=== PATIENT | female | born 1955 | race Caucasian/White ===

== ENCOUNTER 2016-09-14 23:01 | Emergency (ER) | payer OTHER ==
[2016-09-14] MEDS ORDERED: METOCLOPRAMIDE HCL 10 MG/2 ML VIAL ONE (23:30)
[2016-09-14] MEDS ORDERED: DIPHENHYDRAMINE 50 MG/ML VIAL ONE (23:30)
[2016-09-15] MEDS ORDERED: ACYCLOVIR 500 MG/10 ML VIAL IV ONE (00:04)
[2016-09-15] MEDS ORDERED: NORMAL SALINE 100 ML IV ONE (00:18)
--- NOTE | 2016-09-15 01:32 | ER NURSING DOCUMENTATION ---
Nurse's Notes [facility] Name:Shelia Russo Age:61 yrs Sex:Female :1955 Arrival Date:09/14/2016 Time:23:01 Bed1 Private MD:Physician, No Diagnosis:Acute Headache;Shingles Presentation: 09/14 23:07 Presenting complaint: Patient states: PT has had COLON for two days, started behind the right ear and is now on the right side of her head. Pt is photophobic, no nausea. Transition of care: Home. 23:07 Acuity: SHERON 3 23:07 Method Of Arrival: Private Vehicle Triage Assessment: 23:12 Headache History: The patient has had previous headaches and this one is similar to previous episodes. General: Appears uncomfortable, Behavior is cooperative. Pain: Complains of pain in right parietal area and right temporal area Pain currently is 10 out of 10 on a pain scale. Pain began 2-3 days ago Also complains of photophobia. EENT: Oral mucosa is dry. Reports photophobia. Neuro: Level of Consciousness is awake, alert, obeys commands, Oriented to person, place, time, event, Recycling Manager are equal bilaterally Moves all extremities. Gait is steady, Speech is normal, Facial symmetry appears normal, Pupils are PERRLA. Cardiovascular: Capillary refill < 3 seconds Chest pain is denied. Respiratory: Airway is patent. Historical: - Allergies: Toradol; Ceftin; - Home Meds: 1. lisinopril 10 mg oral tab 1 tab once daily 2. duloxetine 60 mg oral cpDR 1 cap once daily 3. cyclobenzaprine 10 mg oral tab 1 tab 4. atorvastatin 40 mg oral tab 1 tab once daily 5. clonazepam 0.5 mg oral tab 1 tab 6. hydrocodone-acetaminophen 7.5-325 mg oral tab 1 tab Q8H as needed for pain 7. Omeprazole Oral - PMHx: FIBROMYALGIA; HIGH CHOLESTEROL; Hypertension; Headaches; MIGRAINES; HENIATED DISC; EMPHYSEMA; - PSHx: ; Knee surgery; - Tetanus: < 10 years. - Ebola Screening: : Patient negative for fever greater than or equal to 101.5 degrees Fahrenheit, and additional compatible Ebola Virus Disease symptoms. - Immunization history: Flu Vaccine None. - Social history: Smoking status: Patient states former smoker of tobacco. Screenin:14 Infectious Disease Risk None. Abuse screen: Denies threats or abuse. Denies injuries rh from another. Nutritional screening: No deficits noted. Assessment: 23:14 See Triage Assessment done by same RN. Vital Signs: 23:13 BP 105 / 52; Pulse 78; Resp 16; Temp 98.0(TE); Pulse Ox 96% on R/A; Weight 84.37 kg; rh Height 5 ft. 6 in. (167.64 cm); Pain 10; 09/15 01:30 BP 106 / 50; Pulse 72; Resp 15; Pulse Ox 93% on R/A; Pain 1/10; rh 09/14 23:13 Body Mass Index 30.02 (84.37 kg, 167.64 cm) rh ED Course: 09/14 23:02 Patient arrived in ED. em2 23:02 Physician, Saundra is Private Physician. em2 23:07 Veronica Young is Primary Nurse. rh 23:08 Triage completed. rh 23:14 Notified ED Physician of patient's arrival and chief complaint. Dr. Magana notified. rh 23:14 Valuables Remains with patient Patient has correct armband on for positive rh identification. Bed in low position. Call light in reach. Side rails up X 1. 23:21 Inserted saline lock: 20 gauge in left antecubital area and blood collected. em1 23:22 Boone Magana MD is Attending Physician. jm Administered Medications: 23:25 Drug: Benadryl 25 mg; Route: IVP; Site: left antecubital; 09/15 00:30 Follow up: Response: No adverse reaction 09/14 23: Drug: NS 0.9% 1000 ml; Route: IV; Rate: bolus; Site: left antecubital; 09/15 00:00 Follow up: IV Status: Completed infusion; IV Intake: 1000ml 09/14 22: Drug: Reglan 5 mg; Route: IVP; Site: left antecubital; 09/15 00:30 Follow up: Response: No adverse reaction 00:21 CANCELLED (Other Intervention Used): Acyclovir 800 mg IVPB once mv 00:21 Drug: Acyclovir 500 mg; Route: IVPB; Infused Over: 1 hrs; Site: left antecubital; mv 01:20 Follow up: IV Status: Completed infusion; IV Intake: 100ml rh Intake: 00:00 IV: 1000ml; Total: 1000ml. 01:20 IV: 100ml; Total: 1100ml. Outcome: 00:37 Discharge ordered by . 01:30 Discharged to home ambulatory, with friend. 01:30 Condition: improved 01:30 Discharge Assessment: Patient awake, alert and oriented x 3. No cognitive and/or functional deficits noted. Patient verbalized understanding of disposition instructions. 01:30 Discharge instructions given to patient, friend, Instructed on discharge instructions, follow up and referral plans. medication usage, no drinking with medication, no driving heavy equipment, Demonstrated understanding of instructions, medications, Prescriptions given X 2. 01:30 IV D/Martell 01:31 Patient left the ED. 11:09 Discharge F/U Call: Unable to reach: no answer lou Signatures: Kristi Key, RN RN Boone Chou MD MD jm [employer], Nicole-tech em1 Franklinking-reg, Nicole-reg em2 Veronica Young mikey de leon
--- NOTE | 2016-09-15 01:32 | ER PHYSICIAN DOCUMENTATION ---
Physician Documentation [facility] Name:Shelia Russo Age:61 yrs Sex:Female :1955 Arrival Date:09/14/2016 Time:23:01 Bed1 Private MD:Physician, No ED Boone Henderson Disposition: 09/15/16 00:37 Discharged to Home/Self Care. Impression: Acute Headache, Shingles. - Condition is Good. - Discharge Instructions: HEADACHE, Unspecified, HERPES ZOSTER. - Prescriptions for Dilaudid 2 mg Oral - take 1 tablet by ORAL route every 6 hours As needed; 15 tablet. Acyclovir 800 mg Oral Tablet - take 1 tablet by ORAL route 4 times per day for 5 days; 20 tablet. - Medical Reconciliation form form. - Follow up: Private Physician; When: 1 week; Reason: Continuance of care. - Problem is new. - Symptoms have improved. HPI: 09/15 10:18 This 61 yrs old Female presents to ER via Private Vehicle with complaints of jm Headache. 10:18 The patient complains of pain to the right eye, right pentecostalism, right temporal area, jm right side of forehead and right ear. The patient describes the headache as sharp. Onset: The symptoms/episode began/occurred 2 day(s) ago. Severity of symptoms: in the emergency department the pain a " 10" out of "10". Headache History: The patient has had previous headaches and this one is different than previous episodes. the symptoms are aggravated by touching the area. The patient has not experienced similar symptoms in the past. Pt got a shingles shot about 10 days ago. She came up here from [facility]. . Historical: - Allergies: Toradol; Ceftin; - Home Meds: 1. lisinopril 10 mg oral tab 1 tab once daily 2. duloxetine 60 mg oral cpDR 1 cap once daily 3. cyclobenzaprine 10 mg oral tab 1 tab 4. atorvastatin 40 mg oral tab 1 tab once daily 5. clonazepam 0.5 mg oral tab 1 tab 6. hydrocodone-acetaminophen 7.5-325 mg oral tab 1 tab Q8H as needed for pain 7. Omeprazole Oral - PMHx: FIBROMYALGIA; HIGH CHOLESTEROL; Hypertension; Headaches; MIGRAINES; HENIATED DISC; EMPHYSEMA; - PSHx: ; Knee surgery; - Tetanus: < 10 years. - Ebola Screening: : Patient negative for fever greater than or equal to 101.5 degrees Fahrenheit, and additional compatible Ebola Virus Disease symptoms. - Immunization history: Flu Vaccine None. - Social history: Smoking status: Patient states former smoker of tobacco. ROS: 10:18 Constitutional: Negative for fever, chills, and weight loss. 10:18 Eyes: Positive for photophobia, Negative for blurry vision, vision loss. 10:18 Neck: Negative for tenderness. 10:18 Abdomen/GI: Negative for nausea. 10:18 Skin: Negative for rash. 10:18 Neuro: Positive for dizziness. Exam: 00:00 Constitutional: The patient appears in no acute distress, alert, awake. 00:00 Head/face: Noted is rash, absent, tenderness, that is moderate, of the right temporal area, right side of forehead and right ear, Sinus tenderness, is not appreciated. 00:00 Eyes: Periorbital structures: appear normal, Pupils: equal, round, and reactive to light and accomodation, Extraocular movements: intact throughout. 00:00 ENT: Posterior pharynx: is normal, erythema, is not appreciated, exudate, is not appreciated, Voice: is normal. 00:00 Neck: ROM/movement: is normal, Lymph nodes: no appreciated lymphadenopathy. 00:00 Skin: Appearance: Color: pink, no rash present. 00:00 Neuro: Mentation: is normal, Memory: is normal, Cranial nerves: CN II- XII are normal as tested, Cerebellar function: normal finger to nose testing, Motor: strength is normal, Sensation: is normal, Gait: is steady. Vital Signs: 09/14 23:13 BP 105 / 52; Pulse 78; Resp 16; Temp 98.0(TE); Pulse Ox 96% on R/A; Weight 84.37 kg; rh Height 5 ft. 6 in. (167.64 cm); Pain 03/02; 09/15 01:30 BP 106 / 50; Pulse 72; Resp 15; Pulse Ox 93% on R/A; Pain /10; rh 09/14 23:13 Body Mass Index 30.02 (84.37 kg, 167.64 cm) rh [facility]: 09/14 23:23 Patient medically screened. 09/15 10:42 Differential diagnosis: herpes zoster, migraine. Neurological re-evaluation: normal neurological exam including cranial nerves, orientation, mentation, motor and sensory exam, cerebellar testing, GCS normal, and normal gait. Data reviewed: vital signs, nurses notes, and as a result, I will discharge patient. Counseling: I had a detailed discussion with the patient and/or guardian regarding: the historical points, exam findings, and any diagnostic results supporting the discharge/admit diagnosis, the need for outpatient follow up, with the patient's primary care provider. Response to treatment: the patient's symptoms have markedly improved after treatment. ED course: H&P makes me wonder if pt is having a subclinical shingles outbreak. Her pain is very typical- sharp and palpable of shingles, but there is no rash. This can sometimes happen after the shingles vaccine which she received 10 days ago. My other thought is its just a typical migraine COLON. She has a hx of these and her pain improved w Reglan/Benadryl combo. Pt sent home on acyclovir just in case and Dilaudid form breakthrough pain. . 09/14 23:16 Order name: Iv Saline Lock; Complete Time: 23:28 09/14 23:43 Order name: Pulse Ox Continuous; Complete Time: 23:46 Dispensed Medications: 09/14 23:25 Drug: Benadryl 25 mg; Route: IVP; Site: left antecubital; 09/15 00:30 Follow up: Response: No adverse reaction 09/14 23:27 Drug: NS 0.9% 1000 ml; Route: IV; Rate: bolus; Site: left antecubital; 09/15 00:00 Follow up: IV Status: Completed infusion; IV Intake: 1000ml 09/14 23:27 Drug: Reglan 5 mg; Route: IVP; Site: left antecubital; 09/15 00:30 Follow up: Response: No adverse reaction rh 00:21 CANCELLED (Other Intervention Used): Acyclovir 800 mg IVPB once mv 00:21 Drug: Acyclovir 500 mg; Route: IVPB; Infused Over: 1 hrs; Site: left antecubital; mv 01:20 Follow up: IV Status: Completed infusion; IV Intake: 100ml Signatures: Boone Magana MD MD Veronica Young margaux mv
== END 2016-09-15 01:31 | disposition home or self-care (01) ==
LOC: ER 23:01
DX: R51 Headache (principal); B02.9 Zoster without complications; H53.143 Visual discomfort, bilateral; R42 Dizziness and giddiness; I10 Essential (primary) hypertension; M79.7 Fibromyalgia; Z79.899 Other long term (current) drug therapy
CPT/HCPCS: 96361; 96365; 96375; 99284; J1200; J2765